=== PATIENT | female | born 1995 | race Caucasian/White ===

== ENCOUNTER 2016-05-20 04:23 | Emergency (ER) | payer OTHER ==
[2016-05-20] MEDS ORDERED: ONDANSETRON HCL/PF 2 MG/ML VIAL IV ONE ×2 (04:42→06:20)
[2016-05-20] MEDS ORDERED: NORMAL SALINE 1,000 ML IV ONE (04:42)
[2016-05-20] MEDS ORDERED: ONDANSETRON HCL/PF 2 MG/ML VIAL ONE ×2 (04:44→06:20)
--- NOTE | 2016-05-20 04:47 | ERNOTE ---
Medical Problem HPI - General Chief Complaint: Nausea/Vomiting Time Seen by Provider: 05/20/16 04:42 Source: patient Exam Limitations: no limitations - Immun/Allergies/Home Medications Immunizations: IMMUNIZATION HX Immunizations Up to Date Yes History of Influenza Vaccine Yes Hx Pneumococcal Vaccination No Allergies/Adverse Reactions: Allergies carbinoxamine Allergy (Mild, Verified 05/20/16 04:30) DIZZY FROM RONDE pseudoephedrine Allergy (Mild, Verified 05/20/16 04:30) DIZZY FROM RONDE hydrocodone Adverse Reaction (Intermediate, Verified 05/20/16 04:30) Vomiting Home Medications: HOME MEDICATIONS Nitrofurantoin/Nitrofuran Mac [Macrobid] 100 mg PO Q12H #14 cap 05/20/16 [Last Taken Unknown] Ondansetron [Zofran Odt] 4 mg PO Q6H PRN #20 tab 05/20/16 [Last Taken Unknown] Pnv95/Ferrous Fumarate/FA [ Tablet] 1 each PO DAILY 05/20/16 [Last Taken Unknown] - History of Present History Narrative: Patient comes in this morning for nausea and vomiting. She is at 20 weeks of gestation denies any fevers or chills denies any diarrhea at this time. Or abdominal pain. Does have some general soreness all over.she has not been able to keep any fluids down since 1800 yesterday Review of Systems - Review of Systems Constitutional: Present: no symptoms reported EYE: Present: no symptoms reported ENT: Present: no symptoms reported Respiratory: Present: no symptoms reported Cardiology: Present: no symptoms reported Gastrointestinal/Abdominal: Present: See HPI - Patient's Past Medical History Patient History - Medical: Anemia Patient History - Cardiac/Respiratory: No pertinent hx Patient History - Cancer: No Hx of Cancer Patient History - Surgical Procedures: Cholecystectomy, Ear Tubes Patient History - Other: None LMP (females 10-50): LMP (Calendar): 12/12/15 - Family History Mother Family History - Medical: Hypothyroidism Family History - Cardiac/Respiratory: Hypertension - Social History Living Situations: home Abuse History: No History of abuse Psych History: No pertinent hx Does anyone smoke in the home?: No Alcohol Use: none Drug Use: none - Immunizations Immunizations Up to Date: Yes Hx Pneumococcal Vaccination: No History of Influenza Vaccine: Yes Physical Exam - Physical Exam General Appearance: Present: wd/wn, alert, no apparent distress Ears, Nose, Throat: Present: normal ENT inspection Neck: Present: normal inspection, nontender, supple Respiratory: Present: no respiratory distress, normal breath sounds, no accessory muscle use, chest nontender, lungs clear Cardiovascular/Chest: Present: regular rate, rhythm, no murmur, normal peripheral pulses Gastrointestinal/Abdominal: Present: normal bowel sounds, nontender, nondistended, soft, other - abdominal exam is benign this is not a surgical abdomen ED Progress - Results and Orders Patient's Lab Results:: I have reviewed the patient's lab results. - Vital Signs Patient's Vital Signs:: I have reviewed the patient's vital signs. Vital Signs: Vital Signs 05/20/16 04:25 Temperature 36.7 C Pulse Rate 130 H Respiratory 18 Rate Blood Pressure 117/72 O2 Sat by Pulse 100 Oximetry - Progress/Reassessment Chief Complaint: Nausea/Vomiting Plan - Plan Plan: pt felt better then sipped some water and felt nauseated again. I advised her to not eat or drink anything for an hour. she does have bacteria on her urine and will be treated Departure - Departure Clinical Impression: Bacteriuria during Nausea & vomiting Qualifiers: Vomiting type: unspecified Vomiting Intractability: unspecified Qualified Code( s): R11.2 - Nausea with vomiting, unspecified Instructions: Morning Sickness Referrals: Karan Rhodes MD [Primary Care Provider] - Prescriptions: Nitrofurantoin/Nitrofuran Mac [Macrobid] 100 mg PO Q12H #14 cap Ondansetron [Zofran Odt] 4 mg PO Q6H PRN #20 tab PRN Reason: Nausea
[2016-05-20 06:00] LABS: Urine Bilirubin Negative (NEGATIVE); Urine Blood Negative /ul (NEGATIVE); Urine Ketone 5 mg/dL (NEGATIVE); Urine Nitrite Negative (NEGATIVE); Urine Protein 15 mg/dL (NEGATIVE); Urine Specific Gravity >=1.030 SP.GR. (1.005-1.010); Urine Urobilinogen Normal (NORMAL)
[2016-05-20 06:13] LABS: Urine Appearance Slightly Cloudy; Urine Bacteria 1+; Urine Color Yellow; Urine Mucus Few - 1+; Urine RBC None Seen /hpf (0-5); Urine WBC 0-5 /hpf (0-5)
[2016-05-20 06:33] VITALS: BP 104/62
== END 2016-05-20 06:31 | disposition home or self-care (01) ==
LOC: ER 04:23
DX: R82.71 Bacteriuria (principal); R11.2 Nausea with vomiting, unspecified; Z33.1 Pregnant state, incidental; Z3A.20 20 weeks gestation of pregnancy

== ENCOUNTER 2016-09-12 10:52 | Inpatient (IN) | payer OTHER ==
[2016-09-12] MEDS ORDERED: ONDANSETRON HCL/PF 2 MG/ML VIAL IV PRN ×2 (11:14→14:52)
[2016-09-12] MEDS ORDERED: LIDOCAINE HCL 50 ML VIAL PERI PRN (11:14)
[2016-09-12] MEDS ORDERED: OXYTOCIN/DEXTROSE 5%-WATER 30 UNITS/500 ML BAG IV ONE ×2 (11:14→17:40)
[2016-09-12 11:27] LABS: Hemoglobin 9.2 gm/dL (12.5-16.0); Mean Cell Volume 78.2 fl (78-100); Mean Corpuscular Hemoglobin 24.8 pg (27-31); Mean Corpuscular Hgb Conc 31.7 g/dl (32-36); Red Blood Count 3.71 M/mm3 (4.2-5.4); White Blood Count 8.4 K/mm3 (4.0-10.5)
[2016-09-12 11:28] LABS: Neutrophil # 6.7 K/mm3 (1.3-6.0); Neutrophil % 79.9 % (42-75.0); Platelet Count 176 K/mm3 (150-450); Red Cell Distribution Width 14.6 % (11.5-14.0)
[2016-09-12 11:41] LABS: Albumin * 2.6 gm/dl (3.4-5.0); Anion Gap 13.5 mmol/L (6.8-13.8); BUN/Creatinine Ratio 8.8 (9.0-21.6); Bilirubin, Total 0.3 mg/dL (0.0-1.1); Ca. Corrected For Albumin 9.7 mg/dL (8.4-10.2); Calcium * 8.9 mg/dL (7.9-10.9); Potassium 3.5 mmol/L (3.4-4.6); Total Protein 6.2 gm/dL (6.2-8.2)
[2016-09-12] MEDS: DEXTROSE 5%-LACTATED RINGERS 1,000 ML IV PRN ×2 (11:44→15:33)
[2016-09-12 12:40] LABS: Random Urine Total Protein 23.4 mg/dL (0-12)
[2016-09-12] MEDS: RINGERS SOLUTION,LACTATED 1,000 ML IV ONE ×2 (14:10→14:47)
[2016-09-12] MEDS ORDERED: BUPIVACAINE HCL/0.9 % NACL/PF 250 ML EP PRN (14:52)
[2016-09-12] MEDS ORDERED: NALOXONE HCL 1 MG/1 ML SYRG IV PRN (14:52)
--- NOTE | 2016-09-12 14:59 | OR ---
Anesthesia Pre Procedure Eval Date of Service: 09/12/16 Pre Procedure Evaluation: Last Vital Signs Temp 36.6 C 05/20/16 06:31 Pulse Resp BP 104/62 05/20/16 06:31 Pulse Ox Anesthesia Pre Procedure Evaluation Heart Rate:89 Blood Pressure:128/80 Termperature:37.4 Respiratory Rate:18 SaO2:100 DATE: 09/12/2016 TIME: 1455 INDICATIONS: Active labor, labor pain PAST MEDICAL HISTORY: Multipara patient in active labor requesting labor analgesia EXAM: Heart regular; lungs clear ASSESSMENT OF MEDICAL STATUS: Appropriate candidate for labor analgesia PLANNED PROCEDURE: Combination spinal epidural for labor analgesia Home Medications: HOME MEDICATIONS Pnv95/Iron Fum/Folic Acid [ Tablet] 1 each PO DAILY 05/20/16 [Last Taken Unknown] Calcium Carbonate [Tums] 500 mg PO TID 09/12/16 [Last Taken Unknown] Ranitidine HCl [Zantac] 150 mg PO HS 09/12/16 [Last Taken Unknown]
[2016-09-12] MEDS ORDERED: fentaNYL CITRATE/PF 50 MCG/ML AMPUL IT SCH (15:00)
--- NOTE | 2016-09-12 15:18 | OR ---
Anesthesia Procedure Note - Anesthesia Procedure Note Date of Service: 09/12/16 Narrative: Vital Signs - Last Taken Temp 36.6 C 05/20/16 06:31 Pulse Resp BP 104/62 05/20/16 06:31 Pulse Ox 09/12/16 15:16 ANESTHESIA PROCEDURE NOTE Date of Procedure: 09/12/2016 Time of procedure: 1455. Performed by: SORAIDA Sunshine CRNA, MSN [employer] Developer:Madalyn Curiel RN. Preprocedure diagnosis: Active labor, labor pain. Post procedure diagnosis: Same. Procedure: Epidural for labor analgesia L3 4. Indications: Labor pain. Findings: See below. Details of the procedure: The patient was placed on the side of the bed in sitting positionand prepped with DuraPrep then draped in a sterile fashion. Lidocaine 1% was infiltrated to the skin and subcutaneous tissues at the level of the L3 4 interspace. An 18-gauge Touhy needle was used to approach the epidural space with loss of resistance technique. Once loss of resistance was achieved a 24-gauge Pencan needle was passed through the epidural needle and CSF was contacted. After CSF returned fentanyl 20 g of fentanyl was injected in the spinal needle was removed the epidural catheter was then threaded approximately 4 cm in the epidural needle was removed. The catheter was taped in place and after careful aspiration 3 mL of 1.5% lidocaine with 1-200,000 epinephrine was injected without change in maternal heart rate or sensorium. . EBL: Minimal. Fluids: N/A. Specimen: N/A. Post procedure condition: The patient tolerated the procedure well with good relief. No complications were noted. Thank you for this consultation. Damaso Hess CRNA, [employer] D[employer]TER, MSN
--- NOTE | 2016-09-12 17:37 | OR ---
Operative Report - Dictated Report Narrative: Spontaneous vaginal delivery of viable female at 1712 on 09/12/2016 with Apgars 7 and 9, weighing 3483 g in CHETNA position with tight nuchal cord 1. Cord clamping delayed approximately 1 minute Placenta delivered complete, intact, with three vessel cord Estimated blood loss: 100 mL Lacerations: Left periurethral abrasion with no repair needed History for MU Definition: * The number of deliveries resulting in a live the patient experienced prior to current hospitalization * The previous delivery of live twins or any live multiple gestation is considered one live event. *If primagravida or nulliparous is documented select zero for the number of previous live births. Live Events: 1
[2016-09-12] MEDS ORDERED: BISACODYL 10 MG SUPP.RECT RC PRN (17:40)
[2016-09-12] MEDS ORDERED: oxyCODONE HCL/ACETAMINOPHEN 1 TAB TABLET PO PRN (17:40)
[2016-09-12] MEDS ORDERED: SENNOSIDES 8.6 MG TABLET PO PRN (17:40)
[2016-09-12] MEDS ORDERED: BENZOCAINE/MENTHOL 81 SPRAY CAN TP PRN (17:40)
[2016-09-12] MEDS ORDERED: GLYCERIN/WITCH HAZEL LEAF 40 APPL BOX TP PRN (17:40)
[2016-09-12] MEDS ORDERED: HYDROCORTISONE 30 APPL TUBE TP PRN (17:40)
[2016-09-12] MEDS: oxyCODONE HCL/ACETAMINOPHEN 1 TAB TABLET PO PRN (22:06)
[2016-09-12] MEDS: IBUPROFEN 800 MG TABLET PO PRN (22:06)
[2016-09-12] MEDS: DOCUSATE SODIUM 100 MG CAPSULE PO SCH (22:07)
[2016-09-13] MEDS: oxyCODONE HCL/ACETAMINOPHEN 1 TAB TABLET PO PRN ×2 (04:05→19:43)
[2016-09-13] MEDS: IBUPROFEN 800 MG TABLET PO PRN ×2 (04:06→19:43)
[2016-09-13] MEDS: DOCUSATE SODIUM 100 MG CAPSULE PO SCH ×2 (09:30→21:33)
[2016-09-13] MEDS: PRENATAL VIT#96/FERROUS FUM/FA 1 TAB TABLET PO SCH (09:30)
--- NOTE | 2016-09-13 23:56 | PN ---
Subjective - Date and Time Seen Date: 09/13/16 Time: 23:56 Objective - Vitals Vitals: Last Vital Signs Temp 36.7 C 09/13/16 21:00 Pulse 86 09/13/16 21:00 Resp 16 09/13/16 21:00 BP 126/80 09/13/16 21:00 Pulse Ox 100 09/13/16 21:00 Patient denies complaints. Lochia wnl Abdomen - soft, nontender Uterus - firm, at umbilicus - 1 No calf tenderness Impression: day #1 - s/p spontaneous vaginal delivery. Plan: Continue routine care
--- NOTE | 2016-09-14 08:54 | PN ---
Subjective - Date and Time Seen Date: 09/14/16 Time: 08:53 Objective - Vitals Vitals: Last Vital Signs Temp 36.7 C 09/14/16 00:56 Pulse 78 09/14/16 00:56 Resp 16 09/14/16 00:56 BP 122/70 09/14/16 00:56 Pulse Ox 99 09/14/16 00:56 Patient denies complaints. Lochia wnl Abdomen - soft, nontender Uterus - firm, at umbilicus - 2 No calf tenderness Impression: day #2 - s/p spontaneous vaginal delivery. Gestational hypertension-resolved. Plan: Routine discharge instructions. Preeclampsia precautions. Follow-up in the office in 1 week for blood pressure check, 4 weeks for routine visit.
[2016-09-14] MEDS: PRENATAL VIT#96/FERROUS FUM/FA 1 TAB TABLET PO SCH (09:02)
[2016-09-14] MEDS: DOCUSATE SODIUM 100 MG CAPSULE PO SCH (09:02)
[2016-09-14] MEDS: oxyCODONE HCL/ACETAMINOPHEN 1 TAB TABLET PO PRN (10:45)
[2016-09-14] MEDS: IBUPROFEN 800 MG TABLET PO PRN (10:45)
[2016-09-14 11:27] VITALS: BP 121/81
== END 2016-09-14 11:00 | disposition home or self-care (01) | DRG 775 ==
LOC: OB 10:52 → MS 09-13 14:10
PROVIDERS: ADMIT Obstetrics & Gynecology; ATTEND Obstetrics & Gynecology
PROC: 10E0XZZ Delivery of Products of Conception, External Approach (ICD-10-PCS; principal; 2016-09-12)
PROC: 3E033VJ Introduction of Other Hormone into Peripheral Vein, Percutaneous Approach (ICD-10-PCS; 2016-09-12)
PROC: 4A1HXCZ Monitoring of Products of Conception, Cardiac Rate, External Approach (ICD-10-PCS; 2016-09-12)
PROC: 00HU33Z Insertion of Infusion Device into Spinal Canal, Percutaneous Approach (ICD-10-PCS; 2016-09-12)
DX: O13.4 Gestational [pregnancy-induced] hypertension without significant proteinuria, complicating childbirth (principal); O69.1XX0 Labor and delivery complicated by cord around neck, with compression, not applicable or unspecified; Z3A.39 39 weeks gestation of pregnancy; Z37.0 Single live birth

== ENCOUNTER 2017-01-04 09:19 | Emergency (ER) | payer OTHER ==
[2017-01-04] MEDS ORDERED: ONDANSETRON 4 MG TAB.RAPDIS PO ONE (09:59)
[2017-01-04] MEDS ORDERED: NORMAL SALINE 1,000 ML IV ONE (10:00)
[2017-01-04] MEDS ORDERED: ONDANSETRON HCL/PF 2 MG/ML VIAL ONE (10:01)
--- NOTE | 2017-01-04 10:05 | ERNOTE ---
Medical Problem HPI - Narrative Date of Service: 01/04/17 - General Chief Complaint: Nausea/Vomiting Time Seen by Provider: 01/04/17 09:52 Source: patient, family Exam Limitations: no limitations - Immun/Allergies/Home Medications Immunizations: IMMUNIZATION HX Immunizations Up to Date Yes History of Influenza Vaccine Yes Hx Pneumococcal Vaccination No Allergies/Adverse Reactions: Allergies carbinoxamine Allergy (Mild, Verified 01/04/17 09:34) DIZZY FROM RONDEC pseudoephedrine Allergy (Mild, Verified 01/04/17 09:34) DIZZY FROM RONDE hydrocodone Adverse Reaction (Intermediate, Verified 01/04/17 09:34) Vomiting Home Medications: HOME MEDICATIONS Medroxyprogesterone Acetate [Depo-Provera] 400 mg IM 01/04/17 [Last Taken Unknown] Prochlorperazine Maleate [Compazine] 10 mg PO TID PRN #16 tab 01/04/17 [Last Taken Unknown] Review of Systems - Narrative Narrative: Patient states that at approx. 0200 this AM she began vomiting constantly with diarrhea. States she feels very dehydrated. States yesterday she felt just fine. Denies any pain whatsoever but does have some generalized body aches. Denies being . - Review of Systems Constitutional: Present: fatigue, malaise EYE: Present: no symptoms reported ENT: Present: no symptoms reported Respiratory: Present: no symptoms reported Cardiology: Present: no symptoms reported Gastrointestinal/Abdominal: Present: nausea, vomiting, diarrhea Genitourinary: Present: no symptoms reported Musculoskeletal: Present: other - Muscle aches Skin: Present: no symptoms reported Neurological: Present: dizziness/light-headedness Endocrine: Present: no symptoms reported Hematologic/Lymphatic: Present: no symptoms reported Psych: Present: no symptoms reported - Patient's Past Medical History Patient History - Medical: Anemia Patient History - Cardiac/Respiratory: No pertinent hx Patient History - Cancer: No Hx of Cancer Patient History - Surgical Procedures: Cholecystectomy, Ear Tubes Patient History - Other: None - Family History Mother Family History - Medical: Hypothyroidism Family History - Cardiac/Respiratory: Hypertension - Social History Abuse History: No History of abuse Psych History: No pertinent hx Smoking Status: Never smoker Have you smoked in the past 12 months: No - Immunizations Immunizations Up to Date: Yes Hx Pneumococcal Vaccination: No History of Influenza Vaccine: Yes Physical Exam - Physical Exam General Appearance: Present: alert, other - Appears ill but not toxic Head Exam: Present: normal inspection Eye Exam: Normal inspection: bilateral, PERRL: bilateral, EOMI: bilateral Ears, Nose, Throat: Present: normal ENT inspection, normal pharynx Neck: Present: normal inspection Respiratory: Present: no respiratory distress, normal breath sounds, no accessory muscle use, lungs clear Cardiovascular/Chest: Present: no murmur, normal peripheral pulses, tachycardia Peripheral Pulses: N=norm/S=strong/W=weak/B=bound/A=absent: Radial (R): Normal, Radial (L): Normal Gastrointestinal/Abdominal: Present: nontender, nondistended, soft, no organomegaly, other - Hyperactive bowel sounds Extremity Exam: Present: normal inspection Neurological Exam: Present: alert, oriented, normal mood/affect, no motor/ sensory deficits Skin Exam: Present: normal color, warm/dry ED Progress - Results and Orders Patient's Lab Results:: I have reviewed the patient's lab results. - Vital Signs Patient's Vital Signs:: I have reviewed the patient's vital signs. Vital Signs: Vital Signs 01/04/17 09:31 Temperature 37 C Pulse Rate 129 H Respiratory 14 Rate Blood Pressure 120/69 O2 Sat by Pulse 97 Oximetry - Progress/Reassessment Chief Complaint: Nausea/Vomiting Progress:: Improved Progress Note-Subjective: 01/04/17 11:20 Patient states nausea has improved. Has been drinking water. Departure Clinical Impression: Gastroenteritis, Nausea & vomiting - Departure Disposition: Home self-care Condition: Good Instructions: Nausea, Adult Additional Instructions: Drink plenty of fluids. Nausea medication may make you drowsy so take with caution. Follow up with family provider in 2-3 days if you have not improved. Referrals: Karan Rhodes MD [Primary Care Provider] - Prescriptions: Prochlorperazine Maleate [Compazine] 10 mg PO TID PRN #16 tab PRN Reason: Nausea
[2017-01-04] MEDS ORDERED: ONDANSETRON HCL/PF 2 MG/ML VIAL IV ONE (10:10)
[2017-01-04 10:29] LABS: Hematocrit 44.8 % (37.0-47.0); Hemoglobin 14.6 gm/dL (12.5-16.0); Mean Cell Volume 84.7 fl (78-100); Mean Corpuscular Hemoglobin 27.6 pg (27-31); Mean Corpuscular Hgb Conc 32.6 g/dl (32-36); Mean Platelet Volume 10.1 fl (6.0-9.5); Neutrophil # 7.7 K/mm3 (1.3-6.0); Neutrophil % 92.6 % (42-75.0); Platelet Count 237 K/mm3 (150-450); Red Blood Count 5.29 M/mm3 (4.2-5.4); Red Cell Distribution Width 13.2 % (11.5-14.0); White Blood Count 8.3 K/mm3 (4.0-10.5)
[2017-01-04 11:50] VITALS: BP 126/72
== END 2017-01-04 11:48 | disposition home or self-care (01) ==
LOC: ER 09:19
DX: K52.9 Noninfective gastroenteritis and colitis, unspecified (principal); R11.2 Nausea with vomiting, unspecified
CPT/HCPCS: 36415; 84703; 85025; 96374; 99283; J2405

== ENCOUNTER 2017-02-05 06:57 | Emergency (ER) | payer OTHER ==
[2017-02-05 07:02] VITALS: BP 131/80
--- NOTE | 2017-02-05 07:38 | ERNOTE ---
ENT HPI Presenting Symptoms: other - sore throat Time Seen by Provider: 02/05/17 07:06 Source: patient Exam Limitations: no limitations - Immun/Allergies/Home Medications Immunizations: IMMUNIZATION HX Immunizations Up to Date Yes History of Influenza Vaccine No Hx Pneumococcal Vaccination No Allergies/Adverse Reactions: Allergies Allergy/AdvReac Type Severity Reaction Status Date / Time carbinoxamine Allergy Mild DIZZY Verified 02/05/17 07:04 pseudoephedrine Allergy Mild DIZZY Verified 02/05/17 07:04 hydrocodone AdvReac Intermediate Vomiting Verified 02/05/17 07:04 Home Medications: HOME MEDICATIONS Medroxyprogesterone Acetate [Depo-Provera] 400 mg IM ONCE 01/04/17 [Last Taken Unknown] - History of Present Illness Narrative: has had sore throat since last night. Has had nasal drainage as well. No cough Severity: Present: moderate ENT Location: Present: throat Prearrival Treatment: Present: no prearrival treatment Associated Symptoms - ENT: Reports: nasal congestion/drainage Review of Systems - Review of Systems Constitutional: Present: fever, fatigue EYE: Present: no symptoms reported ENT: Present: See HPI, nasal drainage, sore throat Respiratory: Absent: cough Cardiology: Absent: chest pain Gastrointestinal/Abdominal: Present: nausea - mild Genitourinary: Present: no symptoms reported Musculoskeletal: Present: no symptoms reported Skin: Present: no symptoms reported Neurological: Present: no symptoms reported Endocrine: Present: no symptoms reported Hematologic/Lymphatic: Present: no symptoms reported Psych: Present: no symptoms reported - Patient's Past Medical History Patient History - Medical: Anemia Patient History - Cardiac/Respiratory: No pertinent hx Patient History - Cancer: No Hx of Cancer Patient History - Surgical Procedures: Cholecystectomy, Ear Tubes Patient History - Other: None - Family History Mother Family History - Medical: Hypothyroidism Family History - Cardiac/Respiratory: Hypertension - Social History Abuse History: No History of abuse Psych History: No pertinent hx Smoking Status: Never smoker - Immunizations Immunizations Up to Date: Yes Hx Pneumococcal Vaccination: No History of Influenza Vaccine: No Physical Exam - Physical Exam General Appearance: Present: wd/wn, alert, no apparent distress Head Exam: Present: normal inspection, no evidence of injury Ears, Nose, Throat: Present: other - mild post pharynx erythema with PND. Tonsils non visible Neck: Present: normal inspection, nontender, supple Respiratory: Present: no respiratory distress, no accessory muscle use Extremity Exam: Present: normal inspection, normal range of motion Neurological Exam: Present: alert, oriented, normal mood/affect, no motor/ sensory deficits Skin Exam: Present: normal color, warm/dry Lymphatic Exam: Present: no adenopathy ED Progress - Results and Orders Patient's Lab Results:: I have reviewed the patient's lab results. Results and Orders: Laboratory Tests 02/05/17 07:06 Group A Strep Rapid Negative - Vital Signs Patient's Vital Signs:: I have reviewed the patient's vital signs. Vital Signs: Vital Signs 02/05/17 07:00 Temperature 37.3 C Pulse Rate 97 Respiratory 18 Rate Blood Pressure 131/80 O2 Sat by Pulse 100 Oximetry - Progress/Reassessment Chief Complaint: Sore Throat Departure Clinical Impression: Upper respiratory infection Qualifiers: URI type: acute nasopharyngitis (common cold) Qualified Code(s): J00 - Acute nasopharyngitis [common cold] - Departure Disposition: Home self-care Condition: Good Instructions: Upper Respiratory Infection, Adult, [id number] Additional Instructions: try mucinex plain or with decongestant, one twice a day. Referrals: Karan Rhodes MD [Primary Care Provider] -
== END 2017-02-05 07:41 | disposition home or self-care (01) ==
LOC: ER 06:57
DX: J00 Acute nasopharyngitis [common cold]
CPT/HCPCS: 87081; 87430; 99282

== ENCOUNTER 2017-05-22 09:09 | Day surgery (SDC) | payer OTHER ==
[~2017-05-22 09:09] MED LIST: ACETAMINOPHEN 160 MG/5 ML BTL PO PRN; DEXAMETHASONE SODIUM PHOSPHATE 10 MG/ML VIAL IV PRN; MORPHINE SULFATE 2 MG/ML DISP.SYRIN IV PRN; MORPHINE SULFATE 4 MG/ML SYRG IV PRN; ONDANSETRON HCL/PF 2 MG/ML VIAL IV PRN; PROMETHAZINE HCL 10 MG in DEXTROSE 5 % IN WATER 50 ML IV PRN; PROMETHAZINE HCL 5 MG in DEXTROSE 5 % IN WATER 50 ML IV PRN; RINGER'S SOLUTION,LACTATED 1,000 ML IV PRN; oxyCODONE HCL 5 MG/5 ML UDC PO PRN
[2017-05-22] MEDS ORDERED: RINGER'S SOLUTION,LACTATED 1,000 ML IV ONE (10:07)
[2017-05-22 12:18] VITALS: BP 118/79
== END 2017-05-22 09:10 | disposition home or self-care (01) ==
LOC: AMB 09:09
PROVIDERS: ATTEND Allergy & Immunology
PROC: 0CTPXZZ Resection of Tonsils, External Approach (ICD-10-PCS; principal; 2017-05-22)
PROC: 0CTQXZZ Resection of Adenoids, External Approach (ICD-10-PCS; 2017-05-22)
DX: J35.03 Chronic tonsillitis and adenoiditis (principal)
CPT/HCPCS: 42821; J2405